=== PATIENT | female | born 1960 | race Caucasian/White ===

== ENCOUNTER 2017-08-04 00:57 | Inpatient (IN) | payer OTHER ==
[~2017-08-04] VITALS: Ht 162.6 cm; Wt 59.0 kg
[2017-08-04 01:05] VITALS: Ht 162.6 cm; Wt 59.0 kg
[2017-08-04 03:22] LABS: BASOPHIL % 0.5 % (0-2); PLATELET COUNT 227 x10^3mcL (130-400); RED CELL DISTRIBUTION WIDTH 12.6 % (11.5-14.5)
[2017-08-04 03:30] LABS: CARBON DIOXIDE 24.1 mmol/L (21-32); CHLORIDE SERUM 105 mmol/L (98-107); CREATININE SERUM 0.8 mg/dL (0.6-1.0); GFR1 > 60 mL/min; GLUCOSE SERUM 105 mg/dL (74-106); POTASSIUM SERUM 3.9 mmol/L (3.5-5.1); SODIUM SERUM 139 mmol/L (136-145)
[2017-08-04 03:35] LABS: ALBUMIN 3.8 g/dL (3.4-5.0); ALKALINE PHOSPHATASE 76 U/L (46-116); ALT/SGPT 60 U/L (14-59); AST/SGOT 34 U/L (15-37); BILIRUBIN TOTAL 0.79 mg/dL (0.20-1.00); TOTAL PROTEIN, SERUM 7.1 g/dL (6.4-8.2)
[2017-08-04 03:36] LABS: LIPASE 3906 IU/L (73-393)
[2017-08-04] MEDS ORDERED: LEVOTHYROXIN0.025 M2 PO (05:11)
[2017-08-04 06:35] VITALS: BP 133/68
[2017-08-04 07:49] LABS: MAGNESIUM 1.8 mg/dL (1.8-2.4); PHOSPHOROUS 3.5 mg/dL (2.5-4.9)
[2017-08-04 07:51] LABS: CHOLESTEROL/HDL RATIO 3.3
[2017-08-04 07:56] LABS: FREE T4 1.32 ng/dL (0.76-1.46); FREE THYROXINE INDEX 3.5 ug/dL (1.4-4.5); T4(THYROXINE) 10.5 ug/dL (4.7-13.3)
[2017-08-04 08:58] VITALS: BP 117/54
[2017-08-04 09:53] LABS: T3 TOTAL 0.95 ng/mL
[2017-08-04 10:29] VITALS: BP 111/53
[2017-08-04 11:06] LABS: microscopic required? YES; urine erythrocyte TRACE (NEGATIVE)
[2017-08-04 11:27] LABS: AMPHETAMINE QUAL UR NONE DETECTED (NEG <=1000)
[2017-08-04 13:19] VITALS: BP 99/56
[2017-08-04] MEDS ORDERED: LIPI10 PO (15:06)
[2017-08-04] MEDS ORDERED: KEFLEX500 M1 PO (15:07)
[2017-08-04] MEDS ORDERED: LAC PO (15:08)
[2017-08-04 15:27] VITALS: BP 99/56
== END 2017-08-04 16:15 | disposition short-term general hospital (02) | DRG 438 ==
LOC: ED 00:57 → DU 05:35
PROVIDERS: Emergency Medicine; Student in an Organized Health Care Education/Training Program
DX: K85.90 Acute pancreatitis without necrosis or infection, unspecified (principal); N17.0 Acute kidney failure with tubular necrosis; N39.0 Urinary tract infection, site not specified; Z88.8 Allergy status to other drugs, medicaments and biological substances; E03.9 Hypothyroidism, unspecified; E78.5 Hyperlipidemia, unspecified; R31.9 Hematuria, unspecified
CPT/HCPCS: 84439; J0696; J2930; J7030; Q0092; Q0163